=== PATIENT | female | born 1980 | race Caucasian/White ===

== ENCOUNTER 2017-01-10 13:20 | Emergency (ER) | payer SELFPAY ==
[2017-01-10 14:51] VITALS: BP 116/85
[2017-01-10] MEDS ORDERED: NORCO 5/325 PO ONE (15:43)
[2017-01-10] MEDS ORDERED: TORADOL IM ONE (15:43)
--- NOTE | 2017-01-10 15:43 | Emergency Department Report ---
ED Back Pain/Injury HPI - General Chief Complaint: Fall Stated Complaint: HIP INJURY FROM FALL Time Seen by Provider: 01/10/17 15:33 Source: patient Limitations: No Limitations - History of Present Illness Initial Comments: 36-year-old female past medical history none presents with complaint of lower back pain and mild pelvic pain status post fall 5 days ago at work. Patient states that she slipped while at work and did split-like motion when she fell one leg forward one leg backward and has experienced tightness and pain in her lower back and bilateral thighs since they have incident. Patient states she wants a primary care clinic had x-rays of her lower back and her pelvis which showed no fractures approximately 4 days ago. Patient has been taking naproxen with minimal relief of her pain. Patient denies any saddle paresthesias no loss of bladder or bowel control is fully ambulatory without assistance. Has not been taking anything for pain other than prescribed naproxen. States she has not has any issues with bowel incontience, denies suprapubic pain, incidentally states she has had increased urinary frequency. MD Complaint: fall Onset/Timin -: days(s) Similar Symptoms Previously: No Place: work Radiation: buttocks Severity: moderate Severity scale (0 -10): 6 Quality: sharp, aching Consistency: intermittent Improves With: immobilization, medication Worsens With: movement, walking Context: turning/twisting, fall Associated Symptoms: denies other symptoms - Related Data Previous Rx's Medication Instructions Recorded Last Taken Type HYDROcodone/APAP 5-325 [[place] 1 each PO Q6HR PRN #15 tablet 01/10/17 Unknown Rx 5/325] Nitrofurantoin [place]/M-Cryst 100 mg PO Q12HR #14 capsule 01/10/17 Unknown Rx [Macrobid CAP] Allergies Allergy/AdvReac Type Severity Reaction Status Date / Time No Known Allergies Allergy Unverified 01/10/17 14:52 ED Review of Systems ROS: Stated complaint: HIP INJURY FROM FALL Other details as noted in HPI Constitutional: denies: chills, fever Eyes: denies: eye pain, eye discharge, vision change ENT: denies: ear pain, throat pain Respiratory: denies: cough, shortness of breath, wheezing Cardiovascular: denies: chest pain, palpitations Endocrine: no symptoms reported Gastrointestinal: denies: abdominal pain, nausea, diarrhea Genitourinary: frequency. denies: urgency, dysuria, discharge Musculoskeletal: as per HPI, back pain. denies: joint swelling, arthralgia Skin: denies: rash, lesions Neurological: denies: headache, weakness, paresthesias Psychiatric: denies: anxiety, depression Hematological/Lymphatic: denies: easy bleeding, easy bruising ED Past Medical Hx - Past Medical History Previous Medical History?: No - Surgical History Past Surgical History?: No - Social History Smoking Status: Never Smoker Substance Use Type: None - Medications Home Medications: Home Medications Medication Instructions Recorded Confirmed Last Taken Type HYDROcodone/APAP 5-325 [[place] 1 each PO Q6HR PRN #15 tablet 01/10/17 Unknown Rx 5/325] Nitrofurantoin [place]/M-Cryst 100 mg PO Q12HR #14 capsule 01/10/17 Unknown Rx [Macrobid CAP] ED Physical Exam - General Limitations: No Limitations General appearance: alert, in no apparent distress - Head Head exam: Present: atraumatic, normocephalic - Eye Eye exam: Present: normal appearance, PERRL, EOMI - ENT ENT exam: Present: mucous membranes moist - Neck Neck exam: Present: normal inspection - Respiratory Respiratory exam: Present: normal lung sounds bilaterally. Absent: respiratory distress - Cardiovascular Cardiovascular Exam: Present: regular rate, normal rhythm. Absent: systolic murmur, diastolic murmur, rubs, gallop - GI/Abdominal GI/Abdominal exam: Present: soft, normal bowel sounds - Rectal Rectal exam: Present: normal rectal tone, other - Extremities Exam Extremities exam: Present: normal inspection, full ROM, tenderness - Back Exam Back exam: Present: normal inspection, paraspinal tenderness (mild paraspinal tendern), other (SLR negative left leg, + right leg 45 degress) - Neurological Exam Neurological exam: Present: alert, oriented X3, CN II-XII intact, normal gait - Psychiatric Psychiatric exam: Present: normal affect, normal mood - Skin Skin exam: Present: warm, dry, intact, normal color. Absent: rash ED Course Vital Signs 01/10/17 14:48 Temperature 97.9 F Pulse Rate 64 Respiratory 18 Rate Blood Pressure 116/85 O2 Sat by Pulse 100 Oximetry ED Medical Decision Making - Medical Decision Making A/P: Musculoskeletal back pain, sciatica 1-patient has no signs of cauda equina no bladder or bowel incontinence, no saddle paresthesias, patient is fully ambulatory without assistance 2-[place] when necessary short course, can continue to use naproxen 3-follow-up with primary care doctor and ortho Critical care attestation.: If time is entered above; I have spent that time in minutes in the direct care of this critically ill patient, excluding procedure time. ED Disposition Clinical Impression: Lower back pain Qualifiers: Chronicity: acute Back pain laterality: bilateral Sciatica presence: with sciatica Sciatica laterality: bilateral sciatica Qualified Code(s): M54.42 - Lumbago with sciatica, left side; M54.41 - Lumbago with sciatica, right side Sciatica Qualifiers: Laterality: bilateral Qualified Code(s): M54.31 - Sciatica, right side; M54.32 - Sciatica, left side Disposition: DISCHARGED TO HOME OR SELFCARE Is pt being admited?: No Does the pt Need Aspirin: No Condition: Stable Instructions: Sciatica (ED), Low Back Strain (ED), Urinary Tract Infection in Women (ED) Prescriptions: HYDROcodone/APAP 5-325 [[place] 5/325] 1 each PO Q6HR PRN #15 tablet PRN Reason: Pain Nitrofurantoin [place]/M-Cryst [Macrobid CAP] 100 mg PO Q12HR #14 capsule Referrals: CLOVER CRUZ MD [Staff Physician] - 3-5 Days ALICIA VALADEZ MD [Staff Physician] - 3-5 Days Forms: Accompanied Note, Work/School Release Form(ED) Time of Disposition: 17:14 Print Language: TUVALUAN
[2017-01-10 16:15] LABS: Bacteria,Urine 2+ /HPF (Negative); Bilirubin,Urine NEG (Negative); Blood,Urine NEG (Negative); Ketones,Urine NEG (Negative); Leukocyte Esterase,Urine MOD (Negative); Mucus,Urine FEW /HPF; Nitrite,Urine NEG (Negative); Protein,Urine <15 mg/dL mg/dL (Negative); Urobilinogen,Urine < 2.0 mg/dL (<2.0)
== END 2017-01-10 17:29 | disposition home or self-care (01) ==
LOC: ED 13:20
DX: M54.42 Lumbago with sciatica, left side (principal); M54.41 Lumbago with sciatica, right side; W01.0XXA Fall on same level from slipping, tripping and stumbling without subsequent striking against object, initial encounter; Y93.9 Activity, unspecified; Y99.9 Unspecified external cause status; Y92.69 Other specified industrial and construction area as the place of occurrence of the external cause
CPT/HCPCS: 81001; 81025; 96372; 99283; J1885

== ENCOUNTER 2021-02-07 10:17 | Emergency (ER) | payer OTHER ==
[2021-02-07 10:46] LABS: Basophils # (Auto) 0.1 K/mm3 (0.0-0.1); Basophils % (Auto) 0.7 % (0.0-1.8); Eosinophils # (Auto) 0.2 K/mm3 (0.0-0.4); Eosinophils % (Auto) 1.9 % (0.0-4.3); Hematocrit 38.9 % (30.3-42.9); Hemoglobin 13.1 gm/dl (10.1-14.3); Lymphocytes # (Auto) 2.2 K/mm3 (1.2-5.4); Lymphocytes % (Auto) 19.7 % (13.4-35.0); Mean Corpuscular HGB Conc 34 % (30-34); Mean Corpuscular Volume 86 fl (79-97); Monocytes # (Auto) 0.5 K/mm3 (0.0-0.8); Monocytes % (Auto) 4.4 % (0.0-7.3); Platelet Count 334 K/mm3 (140-440)
--- NOTE | 2021-02-07 11:22 | Ultrasound Report ---
ULTRASOUND OBSTETRIC INDICATION / CLINICAL INFORMATION: vaginal bleeding. Clinical Gestational Age (GA): 9.2 weeks.days TECHNIQUE: Transabdominal. COMPARISON: None available. FINDINGS: GESTATIONAL SAC: Well-defined oval shape and intrauterine in location. YOLK SAC: No significant abnormality. EMBRYO/FETUS: No significant abnormality. - [place]-Rump Length = 2.17 cm = 8.6 weeks.days - Heart Rate, beats per minute (if present) = 170 ADNEXA: Simple right ovarian cyst measures 2.5 cm. The left adnexa is unremarkable. FREE FLUID: None. ADDITIONAL FINDINGS: Small thin subchorionic hemorrhage is noted. IMPRESSION: 1. Single, living intrauterine with estimated sonographic age of 9.2 weeks.days. 2. Small subchorionic hemorrhage noted. Signer Name: Tam Becker MD Signed: 02/07/2021 11:17 AM Workstation Name: [id number]
[2021-02-07 11:23] VITALS: BP 111/69
--- NOTE | 2021-02-07 11:34 | Emergency Department Report ---
ED General Adult HPI - General Chief complaint: Vaginal Bleeding Stated complaint: 9 WKS BLEEDING Time Seen by Provider: 02/07/21 10:30 Source: patient Mode of arrival: Ambulatory Limitations: No Limitations - History of Present Illness Initial comments: 40-year-old female patient presents with complaints of vaginal bleeding and possible blood in urine x yesterday. Patient states she is 9 weeks and is currently following with an [facility]. She is A1. She denies any nausea/vomiting, diarrhea/constipation, flank pain, chest pain, shortness of breath, or swelling. Patient states her pain is mild and rates it as a 4/10 in severity. No vaginal discharge/dyspareunia or fever/chills/sweats per patient. - Related Data Previous Rx's Medication Instructions Recorded Last Taken Type HYDROcodone/APAP 5-325 [[place] 1 each PO Q6HR PRN #15 tablet 01/10/17 Unknown Rx 5/325] Nitrofurantoin [place]/M-Cryst 100 mg PO Q12HR #14 capsule 01/10/17 Unknown Rx [Macrobid CAP] Allergies Allergy/AdvReac Type Severity Reaction Status Date / Time No Known Allergies Allergy Unverified 01/10/17 14:52 ED Review of Systems ROS: Stated complaint: 9 WKS BLEEDING Other details as noted in HPI Constitutional: denies: chills, diaphoresis, fever, malaise Respiratory: denies: cough, shortness of breath Cardiovascular: denies: chest pain Genitourinary: hematuria, abnormal menses. denies: urgency, dysuria, frequency, discharge, dyspareunia Musculoskeletal: denies: back pain Skin: denies: rash, lesions Neurological: denies: headache Hematological/Lymphatic: denies: easy bleeding ED Past Medical Hx - Social History Smoking Status: Never Smoker Substance Use Type: None - Medications Home Medications: Home Medications Medication Instructions Recorded Confirmed Last Taken Type HYDROcodone/APAP 5-325 [[place] 1 each PO Q6HR PRN #15 tablet 01/10/17 Unknown Rx 5/325] Nitrofurantoin [place]/M-Cryst 100 mg PO Q12HR #14 capsule 01/10/17 Unknown Rx [Macrobid CAP] ED Physical Exam - General Limitations: No Limitations General appearance: alert, in no apparent distress - Head Head exam: Present: atraumatic, normocephalic - Eye Eye exam: Present: normal appearance. Absent: scleral icterus - Neck Neck exam: Present: normal inspection - Respiratory Respiratory exam: Present: normal lung sounds bilaterally. Absent: respiratory distress - Cardiovascular Cardiovascular Exam: Present: regular rate, normal rhythm - GI/Abdominal GI/Abdominal exam: Present: soft, normal bowel sounds. Absent: distended, tenderness, guarding, rebound, rigid - Extremities Exam Extremities exam: Present: full ROM - Back Exam Back exam: Present: full ROM. Absent: CVA tenderness (R), CVA tenderness (L) - Neurological Exam Neurological exam: Present: alert, oriented X3 - Psychiatric Psychiatric exam: Present: normal affect, normal mood - Skin Skin exam: Present: warm, dry, intact, normal color. Absent: rash ED Course Vital Signs 02/07/21 11:21 Temperature 98.5 F Pulse Rate 71 Respiratory 18 Rate Blood Pressure 111/69 O2 Sat by Pulse 100 Oximetry ED Medical Decision Making - Lab Data Result diagrams: 02/07/21 10:37 02/07/21 10:37 Lab Results 02/07/21 02/07/21 02/07/21 Range/Units 10:37 10:37 10:37 WBC 11.0 (4.5-11.0) K/mm3 RBC 4.50 (3.65-5.03) M/mm3 Hgb 13.1 (10.1-14.3) gm/dl Hct 38.9 (30.3-42.9) % MCV 86 (79-97) fl MCH 29 (28-32) pg MCHC 34 (30-34) % RDW 14.0 (13.2-15.2) % Plt Count 334 (140-440) K/mm3 Lymph % (Auto) 19.7 (13.4-35.0) % Johnson % (Auto) 4.4 (0.0-7.3) % Eos % (Auto) 1.9 (0.0-4.3) % Baso % (Auto) 0.7 (0.0-1.8) % Lymph # (Auto) 2.2 (1.2-5.4) K/mm3 Johnson # (Auto) 0.5 (0.0-0.8) K/mm3 Eos # (Auto) 0.2 (0.0-0.4) K/mm3 Baso # (Auto) 0.1 (0.0-0.1) K/mm3 Seg Neutrophils % 73.3 H (40.0-70.0) % Seg Neutrophils # 8.1 H (1.8-7.7) K/mm3 Sodium 136 L (137-145) mmol/L Potassium 3.9 (3.6-5.0) mmol/L Chloride 104.1 (98-107) mmol/L Carbon Dioxide 24 (22-30) mmol/L Anion Gap 12 mmol/L BUN 8 (7-17) mg/dL Creatinine 0.6 (0.6-1.2) mg/dL Estimated GFR > 60 ml/min BUN/Creatinine Ratio 13 % Glucose 103 H (65-100) mg/dL Calcium 8.3 L (8.4-10.2) mg/dL Total Bilirubin 0.20 (0.1-1.2) mg/dL AST 12 (5-40) units/L ALT 14 (7-56) units/L Alkaline Phosphatase 59 (35-129) units/L Total Protein 6.4 (6.3-8.2) g/dL Albumin 3.3 L (3.9-5) g/dL Albumin/Globulin Ratio 1.1 % HCG, Quant 19552 H (0-4) mIU/mL Urine Color (Yellow) Urine Turbidity (Clear) Urine pH (5.0-7.0) Ur Specific [place] (1.003-1.030) Urine Protein (Negative) mg/dL Urine Glucose (UA) (Negative) mg/dL Urine Ketones (Negative) mg/dL Urine Blood (Negative) Urine Nitrite (Negative) Urine Bilirubin (Negative) Urine Urobilinogen (<2.0) mg/dL Ur Leukocyte Esterase (Negative) Urine WBC (Auto) (0.0-6.0) /HPF Urine RBC (Auto) (0.0-6.0) /HPF U Epithel Cells (Auto) (0-13.0) /HPF Urine Bacteria (Auto) (Negative) /HPF Amorphous Crystals Urine Mucus /HPF Blood Type 02/07/21 02/07/21 Range/Units 10:37 Unknown WBC (4.5-11.0) K/mm3 RBC (3.65-5.03) M/mm3 Hgb (10.1-14.3) gm/dl Hct (30.3-42.9) % MCV (79-97) fl MCH (28-32) pg MCHC (30-34) % RDW (13.2-15.2) % Plt Count (140-440) K/mm3 Lymph % (Auto) (13.4-35.0) % Johnson % (Auto) (0.0-7.3) % Eos % (Auto) (0.0-4.3) % Baso % (Auto) (0.0-1.8) % Lymph # (Auto) (1.2-5.4) K/mm3 Johnson # (Auto) (0.0-0.8) K/mm3 Eos # (Auto) (0.0-0.4) K/mm3 Baso # (Auto) (0.0-0.1) K/mm3 Seg Neutrophils % (40.0-70.0) % Seg Neutrophils # (1.8-7.7) K/mm3 Sodium (137-145) mmol/L Potassium (3.6-5.0) mmol/L Chloride (98-107) mmol/L Carbon Dioxide (22-30) mmol/L Anion Gap mmol/L BUN (7-17) mg/dL Creatinine (0.6-1.2) mg/dL Estimated GFR ml/min BUN/Creatinine Ratio % Glucose (65-100) mg/dL Calcium (8.4-10.2) mg/dL Total Bilirubin (0.1-1.2) mg/dL AST (5-40) units/L ALT (7-56) units/L Alkaline Phosphatase (35-129) units/L Total Protein (6.3-8.2) g/dL Albumin (3.9-5) g/dL Albumin/Globulin Ratio % HCG, Quant (0-4) mIU/mL Urine Color Yellow (Yellow) Urine Turbidity Hazy (Clear) Urine pH 6.0 (5.0-7.0) Ur Specific [place] 1.020 (1.003-1.030) Urine Protein <15 mg/dl (Negative) mg/dL Urine Glucose (UA) Neg (Negative) mg/dL Urine Ketones Neg (Negative) mg/dL Urine Blood Sm (Negative) Urine Nitrite Neg (Negative) Urine Bilirubin Neg (Negative) Urine Urobilinogen < 2.0 (<2.0) mg/dL Ur Leukocyte Esterase Neg (Negative) Urine WBC (Auto) 4.0 (0.0-6.0) /HPF Urine RBC (Auto) 4.0 (0.0-6.0) /HPF U Epithel Cells (Auto) 6.0 (0-13.0) /HPF Urine Bacteria (Auto) 1+ (Negative) /HPF Amorphous Crystals Few Urine Mucus Few /HPF Blood Type A POSITIVE - Radiology Data Radiology results: report reviewed ULTRASOUND OBSTETRIC INDICATION / CLINICAL INFORMATION: vaginal bleeding. Clinical Gestational Age (GA): 9.2 weeks.days TECHNIQUE: Transabdominal. COMPARISON: None available. FINDINGS: GESTATIONAL SAC: Well-defined oval shape and intrauterine in location. YOLK SAC: No significant abnormality. EMBRYO/FETUS: No significant abnormality. - [place]-Rump Length = 2.17 cm = 8.6 weeks.days - Heart Rate, beats per minute (if present) = 170 ADNEXA: Simple right ovarian cyst measures 2.5 cm. The left adnexa is unremarkable. FREE FLUID: None. ADDITIONAL FINDINGS: Small thin subchorionic hemorrhage is noted. IMPRESSION: 1. Single, living intrauterine with estimated sonographic age of 9.2 weeks.days. 2. Small subchorionic hemorrhage noted. - Medical Decision Making 40-year-old female patient presents with complaints of vaginal bleeding and possible blood in urine x yesterday. Patient states she is 9 weeks and is currently following with an [facility]. She is A1. She denies any nausea/vomiting, diarrhea/constipation, flank pain, chest pain, shortness of breath, or swelling. Patient states her pain is mild and rates it as a 4/10 in severity. No vaginal discharge/dyspareunia or fever/chills/sweats per patient. Ultrasound shows 9.2-week IUP with small subchorionic hematoma. No significant abnormalities noted on UA, CBC, or CMP. Recommend pelvic rest and follow-up with [facility] in 3 days. Patient's vitals are normal, she is well-appearing, she is stable for discharge home. Discussed signs and symptoms that should prompt immediate return to the emergency department in detail with patient who verbalizes understanding. Critical care attestation.: If time is entered above; I have spent that time in minutes in the direct care of this critically ill patient, excluding procedure time. ED Disposition Clinical Impression: First trimester bleeding Subchorionic bleed Qualifiers: Fetus number: single or unspecified fetus Disposition: - TO HOME OR SELFCARE Is pt being admited?: No Condition: Stable Instructions: Vaginal Bleeding During , First Trimester, Activity Restriction During , Subchorionic Hematoma Additional Instructions: Please follow-up with your [facility] in 3 days
[2021-02-07 11:56] LABS: Alanine Aminotransferase 14 units/L (7-56); Albumin 3.3 g/dL (3.9-5); Blood Urea Nitrogen 8 mg/dL (7-17)
[2021-02-07 12:05] LABS: Calcium 8.3 mg/dL (8.4-10.2); Hemolysis Index 14
[2021-02-07 12:28] LABS: BUN/Creatinine Ratio 13
[2021-02-07 12:50] LABS: Amorphous Crystals,Urine Few; Bacteria,Urine 1+ /HPF (Negative); Bilirubin,Urine NEG (Negative); Blood,Urine SM (Negative); Color,Urine Yellow (Yellow); Mucus,Urine FEW /HPF; Protein,Urine <15 mg/dL mg/dL (Negative); Urobilinogen,Urine < 2.0 mg/dL (<2.0)
== END 2021-02-07 14:11 | disposition home or self-care (01) ==
LOC: ED 10:17
DX: O20.8 Other hemorrhage in early pregnancy (principal); Z3A.09 9 weeks gestation of pregnancy
CPT/HCPCS: 36415; 76801; 80053; 81001; 84702; 85025; 86900; 86901

== ENCOUNTER 2021-05-08 22:13 | Outpatient (CLI) | payer OTHER ==
[2021-05-08] MEDS ORDERED: LACTATED RINGERS 1,000 ML ONE (22:49)
[2021-05-08 23:23] LABS: Basophils # (Auto) 0.1 K/mm3 (0.0-0.1); Basophils % (Auto) 0.8 % (0.0-1.8); Eosinophils # (Auto) 0.3 K/mm3 (0.0-0.4); Eosinophils % (Auto) 2.7 % (0.0-4.3); Hematocrit 34.2 % (30.3-42.9); Hemoglobin 12.1 gm/dl (10.1-14.3); Lymphocytes # (Auto) 2.7 K/mm3 (1.2-5.4); Lymphocytes % (Auto) 26.6 % (13.4-35.0); Mean Corpuscular HGB Conc 35 % (30-34); Mean Corpuscular Volume 85 fl (79-97); Monocytes # (Auto) 0.8 K/mm3 (0.0-0.8); Monocytes % (Auto) 8.4 % (0.0-7.3); Platelet Count 346 K/mm3 (140-440); Red Blood Count 4.04 M/mm3 (3.65-5.03); Red Cell Distribution Width 14.7 % (13.2-15.2)
[2021-05-08] MEDS ORDERED: MORPHINE 4 MG/1 ML INJ IV ONE ×2 (23:51→23:58)
--- NOTE | 2021-05-08 23:51 | Ultrasound Report ---
Limited OB ultrasound INDICATION: Bleeding FINDINGS: Single live intrauterine in cephalic position. ENOC measures 14.2 cm. Grade 0 plac enta posterior location. heart rate 1 52 bpm. Cervix length 3.6 cm. IMPRESSION: Live intrauterine . No acute findings. Signer Name: Kalpesh Mabry MD Signed: 05/08/2021 11:46 PM Workstation Name: [id number]
[2021-05-08] MEDS ORDERED: MORPHINE 4 MG/1 ML INJ ONE (23:56)
[2021-05-09] MEDS ORDERED: LACTATED RINGERS 1,000 ML ONE (00:08)
[2021-05-09 02:47] VITALS: BP 103/60
== END 2021-05-09 06:03 | disposition home or self-care (01) ==
LOC: TRG 22:13 → APU 22:17 → TRG 05-09 06:03
DX: O46.92 Antepartum hemorrhage, unspecified, second trimester (principal); O26.892 Other specified pregnancy related conditions, second trimester; M54.9 Dorsalgia, unspecified; R10.2 Pelvic and perineal pain; O47.02 False labor before 37 completed weeks of gestation, second trimester; O09.522 Supervision of elderly multigravida, second trimester; Z3A.22 22 weeks gestation of pregnancy
CPT/HCPCS: 36415; 59025; 76815; 85025; 96374; J2270; J7120; 96360

== ENCOUNTER 2021-07-28 10:31 | Outpatient (CLI) | payer OTHER ==
[2021-07-28] MEDS ORDERED: LACTATED RINGERS 1,000 ML IV ONE (11:23)
[2021-07-28 11:31] VITALS: BP 124/85
[2021-07-28 12:14] LABS: Bacteria,Urine 2+ /HPF (Negative); Bilirubin,Urine NEG (Negative); Blood,Urine LG (Negative); Color,Urine Yellow (Yellow); Protein,Urine <15 mg/dL mg/dL (Negative); Urobilinogen,Urine < 2.0 mg/dL (<2.0)
[2021-07-28] MEDS ORDERED: LACTATED RINGERS 1,000 ML ONE (14:43)
[2021-07-28] MEDS ORDERED: ceFAZolin 1 GM VIAL ONE (16:59)
[2021-07-28] MEDS ORDERED: LACTATED RINGERS 500 ML IV ONE (17:00)
[2021-07-28] MEDS: TERBUTALINE 1 MG/1 ML INJ SUB-Q SCH ×2 (17:09→17:54)
== END 2021-07-28 18:37 | disposition home or self-care (01) ==
LOC: TRG 10:31 → APU 10:32 → TRG 18:37
PROVIDERS: ATTEND Obstetrics & Gynecology
DX: O62.9 Abnormality of forces of labor, unspecified (principal); O46.93 Antepartum hemorrhage, unspecified, third trimester; O09.523 Supervision of elderly multigravida, third trimester; Z3A.33 33 weeks gestation of pregnancy
CPT/HCPCS: 59025; 81001; 96365; 96372; J0690; J3105; J7120; 96360; 96361

== ENCOUNTER 2021-08-02 05:40 | Outpatient (CLI) | payer OTHER ==
[2021-08-02] MEDS ORDERED: LACTATED RINGERS 1,000 ML IV ONE (06:18)
[2021-08-02 08:05] LABS: Bacteria,Urine 1+ /HPF (Negative); Bilirubin,Urine NEG (Negative); Blood,Urine NEG (Negative); Color,Urine Yellow (Yellow); Mucus,Urine FEW /HPF; Protein,Urine <15 mg/dL mg/dL (Negative); Urobilinogen,Urine < 2.0 mg/dL (<2.0)
[2021-08-02 08:17] VITALS: BP 125/80
== END 2021-08-02 08:30 | disposition home or self-care (01) ==
LOC: TRG 05:40 → APU 05:42 → TRG 08:30
PROVIDERS: ATTEND Obstetrics & Gynecology
DX: O62.9 Abnormality of forces of labor, unspecified (principal); O09.523 Supervision of elderly multigravida, third trimester; Z3A.34 34 weeks gestation of pregnancy
CPT/HCPCS: 59025; 81001; 96360; J7120

== ENCOUNTER 2021-08-08 07:10 | Inpatient (IN) | payer OTHER ==
[2021-08-08] MEDS ORDERED: LACTATED RINGERS 500 ML IV ONE (08:21)
[2021-08-08] MEDS ORDERED: MORPHINE 2 MG/1 ML INJ IV NR (09:29)
[2021-08-08 09:47] LABS: Hematocrit 31.9 % (30.3-42.9); Hemoglobin 10.9 gm/dl (10.1-14.3); Mean Corpuscular HGB Conc 34 % (30-34); Mean Corpuscular Volume 84 fl (79-97); Platelet Count 254 K/mm3 (140-440); Red Blood Count 3.78 M/mm3 (3.65-5.03); Red Cell Distribution Width 15.3 % (13.2-15.2)
[2021-08-08 10:09] LABS: Bacteria,Urine 4+ /HPF (Negative); Bilirubin,Urine NEG (Negative); Blood,Urine NEG (Negative); Color,Urine Yellow (Yellow); Mucus,Urine FEW /HPF; Urobilinogen,Urine < 2.0 mg/dL (<2.0)
[2021-08-08 10:11] LABS: Alanine Aminotransferase 13 units/L (7-56); Uric Acid 3.7 mg/dL (3.5-7.6)
[2021-08-08] MEDS ORDERED: TERBUTALINE 1 MG/1 ML INJ SUB-Q PRN (12:05)
[2021-08-08] MEDS ORDERED: ONDANSETRON 4 MG/2 ML INJ IV PRN (12:05)
[2021-08-08] MEDS ORDERED: AMPICILLIN/NS 2 GM/100 ML 2 GM/100 ML BAG IV ONE (12:05)
[2021-08-08] MEDS ORDERED: ACETAMINOPHEN 325 MG TAB PO PRN (12:05)
[2021-08-08] MEDS ORDERED: MAGNESIUM SULFATE 4 GM/100 ML BAG IV ONE (12:13)
[2021-08-08] MEDS ORDERED: CARBOPROST TROMETHAMINE 250 MCG/1 ML INJ IM PRN (12:24)
[2021-08-08] MEDS ORDERED: LIDOCAINE (2%) 20 MG/1 ML VIAL 20 ML MDV INFILTRATI ONE (12:24)
[2021-08-08] MEDS ORDERED: METHYLERGONOVINE MALEATE 0.2 MG/ML VIAL IM PRN (12:24)
[2021-08-08] MEDS ORDERED: miSOPROStol 200 MCG TAB PR PRN (12:24)
[2021-08-08] MEDS ORDERED: LOPERAMIDE 2 MG CAP PO PRN (12:24)
[2021-08-08] MEDS ORDERED: OXYTOCIN 10 UNIT/1 ML INJ IM PRN (12:24)
--- NOTE | 2021-08-08 12:29 | History and Physical Report ---
History of Present Illness Date of examination: 08/08/21 Date of admission: 08/08/21 07:11 Chief complaint: Contractions, headache. History of present illness: 41 year old presents to L&D with contractions, headache, and elevated blood pressure. Patient states she received care at [facility] but no records are available. records have been requested. In triage patient's blood pressure was noted to be elevated in severe range and Dr. Browning gave orders for admission, magnesium sulfate, Celestone, and augmentation of labor due to preeclampsia with severe features. Patient reports history of 3 previous full term vaginal births and 1 second trimester miscarriage at 18 weeks gestation (states fetus had defects). Patient reports her was significant for AMA and vaginal bleeding in first trimester and again at 20 weeks (resolved both times). labs were drawn upon admission. Patient reports "allergy" to morphine (states she gets nausea). 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 denies: smoking, alcohol abuse, prescription drug abuse, IV drug use - Obstetrical History Expected Date of Delivery: 09/10/21 Actual Gestation: 35 Week(s) 2 Day(s) : 5 Para: 3 Hx # Term Pregnancies: 3 Number of Pregnancies: 0 Spontaneous Abortions: 1 Induced : 0 Number of Living Children: 3 Medications and Allergies Allergies Allergy/AdvReac Type Severity Reaction Status Date / Time morphine AdvReac Severe Dizziness Verified 08/08/21 08:19 Home Medications Medication Instructions Recorded Confirmed Last Taken Type No.137/Iron/Folic Acd 1 tab PO DAILY 08/08/21 08/08/21 08/07/21 History [[facility] Vitamins Tablet] Active Meds: Active Medications Acetaminophen (Acetaminophen 325 Mg Tab) 650 mg PO Q4H PRN PRN Reason: Pain, Mild (1-3) Betamethasone Acet/Betameth SodPhos (Betamet Acet/Betamet Na Ph 6 Mg/Ml Inj 5 Ml Mdv) 12 mg IM Q24HR DARLENE Stop: 08/09/21 10:01 Carboprost Tromethamine (Carboprost Tromethamine 250 Mcg/1 Ml Inj) 250 mcg IM ONCE PRN PRN Reason: Uterine Bleeding Lactated Ringer's (Lactated Ringers) 1,000 mls @ 75 mls/hr IV DIRECT DARLENE Ampicillin Sodium (Ampicillin/Ns 2 Gm/100 Ml) 2 gm in 100 mls @ 100 mls/hr IV ONCE ONE; Protocol Stop: 08/08/21 13:04 Ampicillin Sodium (Ampicillin/Ns 1 Gm/50 Ml) 1 gm in 50 mls @ 100 mls/hr IV Q4H DARLENE; Protocol Magnesium Sulfate (Magnesium Sulfate 4gm/100ml) 4 gm in 100 mls @ 300 mls/hr IV ONCE ONE Stop: 08/08/21 12:32 Magnesium Sulfate (Magnesium Sulfate 40gm/1000ml) 40 gm in 1,000 mls @ 50 mls/hr IV DIRECT DARLENE Oxytocin/Sodium Chloride (Pitocin/Ns 30 Unit/500ml) 30 units in 500 mls @ 2 mls/hr IV TITR DARLENE; Protocol Oxytocin/Sodium Chloride (Pitocin/Ns 30 Unit/500ml) 30 units in 500 mls @ 40 mls/hr IV TITR DARLENE; Protocol Lidocaine (Lidocaine (2%) 20 Mg/1 Ml Vial 20 Ml Mdv) 20 ml INFILTRATI ONCE ONE Stop: 08/08/21 12:25 Loperamide HCl (Loperamide 2 Mg Cap) 2 mg PO ONCE PRN PRN Reason: give with Hemabate Misoprostol (Misoprostol 200 Mcg Tab) [address] ONCE PRN PRN Reason: Uterine Bleeding Ondansetron HCl (Ondansetron 4 Mg/2 Ml Inj) 4 mg IV Q8H PRN PRN Reason: Nausea And Vomiting Oxytocin (Oxytocin 10 Unit/1 Ml Inj) 10 unit IM ONCE PRN PRN Reason: Uterine Bleeding Terbutaline Sulfate (Terbutaline 1 Mg/1 Ml Inj) 0.25 mg SUB-Q ONCE PRN PRN Reason: Hyperstimulation/Hypertonicity Review of Systems All systems: negative (contractions, headache) - Vital Signs Vital signs: Vital Signs Pulse BP Pulse Ox 67 139/85 98 08/08/21 08:14 08/08/21 08:14 08/08/21 08:14 Temp Pulse Resp BP Pulse Ox 98.2 F 73 14 138/88 97 08/08/21 08:20 08/08/21 12:24 08/08/21 08:20 08/08/21 11:24 08/08/21 12:24 - Physical Exam Abdomen: Positive: normal appearance, soft. Negative: distention, tenderness, guarding, rigidity Genitourinary (Female): Positive: normal external genitalia, normal perenium. Negative: perineal/vulvar lesions (no lesions noted on careful exam under bright light) Vagina: Positive: normal moisture Uterus: Positive: enlarged. Negative: tender Anus/Rectum: Positive: normal perianal skin Extremities: Negative: tenderness - Obstetrical FHR: category 1 Uterine Contraction Monitor Mode: External Cervical Dilatation: 0.5 Cervical Effacement Percentage: 50 station: -4 Uterine Contraction Pattern: Irregular Uterine Contraction Intensity: Mild Results Result Diagrams: 08/08/21 09:35 08/08/21 09:35 Abnormal lab results 08/08/21 08/08/21 08/08/21 Range/Units 09:35 09:35 09:35 RDW 15.3 H (13.2-15.2) % Creatinine 0.5 L (0.6-1.2) mg/dL U Epithel Cells (Auto) 51.0 H (0-13.0) /HPF All other labs normal. Assessment and Plan A: at 35 weeks, 2 days gestation. Preeclampsia with severe features. AMA. GBS unknown. No records available. P: Admit. Continuous EFM. Celestone for FLM. Magnesium Sulfate for seizure prevention IV hydralazine as needed for severe range BPs. GBS prophylaxis. US for presentation and location of placenta. Obtain records ( labs were drawn upon admission since no records available at this time). Start Pitocin augmentation of labor once US confirms cephalic presentation and placental location.
[2021-08-08] MEDS ORDERED: hydrALAZINE 20 MG/1 ML INJ IV PRN (12:50)
[2021-08-08] MEDS ORDERED: MAGNESIUM SULFATE 40GM/1000ML 40 GM/1,000 ML BAG IV SCH (13:00)
[2021-08-08] MEDS ORDERED: OXYTOCIN DRIP 30 UNITS/500 ML BAG IV SCH ×2 (13:00)
[2021-08-08] MEDS: LACTATED RINGERS 1,000 ML IV SCH (13:44)
--- NOTE | 2021-08-08 13:45 | Ultrasound Report ---
ULTRASOUND OBSTETRIC LIMITED INDICATION / CLINICAL INFORMATION: presentation, location of placenta. Clinical Gestational Age (GA) in weeks, days: TECHNIQUE: Transabdominal. COMPARISON: 05/08/2021 FINDINGS: HEART RATE (beats per minute): 143 AMNIOTIC FLUID INDEX (cm) = not measured. (normal = 7-24 cm) PRESENTATION: Cephalic. ADDITIONAL FINDINGS: Placenta is located posteriorly without previa. Placental grade is 1. IMPRESSION: 1. Single viable IUP in a cephalic presentation with posteriorly located placenta. No previa. Signer Name: Ashly Austin MD Signed: 08/08/2021 1:41 PM Workstation Name: [id number]
[2021-08-08] MEDS ORDERED: BETAMET ACET/BETAMET NA PH 6 MG/ML INJ 5 ML MDV IM SCH (14:00)
[2021-08-08] MEDS: NalbUPHINE 10 MG/1 ML INJ IV PRN ×2 (15:45→19:36)
[2021-08-08] MEDS ORDERED: MORPHINE 2 MG/1 ML INJ IM ONE (16:00)
[2021-08-08 18:11] LABS: Hepatitis C Virus Antibody Non-Reactive (NonReactive)
[2021-08-08] MEDS: AMPICILLIN/NS 1 GM/50 ML 1 GM/50 ML BAG IV SCH (19:37)
[2021-08-09] MEDS ORDERED: ACETAMINOPHEN 500 MG TAB PO PRN (00:54)
[2021-08-09] MEDS: AMPICILLIN/NS 1 GM/50 ML 1 GM/50 ML BAG IV SCH (01:06)
[2021-08-09] MEDS ORDERED: diphenhydrAMINE 25 MG CAP PO ONE (01:30)
--- NOTE | 2021-08-09 03:06 | Event Note ---
Date: 08/09/21 Patient complains of headache which is not relieved by Tylenol. Patient states headache is severe. BPs are well controlled. Called Dr. Browning re: patient's persistent headache and Dr. Browning orders head CT. Patient refused head CT. Blood glucose is 134.
[2021-08-09] MEDS ORDERED: BUTALB/ACETAMINOPHEN/CAFFEINE TAB PO PRN (03:42)
[2021-08-09] MEDS ORDERED: LORazepam 2 MG/ML VIAL IV ONE (08:00)
[2021-08-09] MEDS ORDERED: BICITRA ORAL LIQD 30ML PO ONE (08:56)
[2021-08-09] MEDS ORDERED: METOCLOPRAMIDE 10 MG/2 ML INJ IV ONE (08:56)
[2021-08-09] MEDS ORDERED: FAMOTIDINE 20 MG/2 ML INJ IV ONE (08:56)
[2021-08-09] MEDS ORDERED: SODIUM CHLORIDE 0.9% 500 ML 500 ML IV ONE (08:59)
[2021-08-09] MEDS ORDERED: propofoL 200 MG/20 ML VIAL IV ONE (08:59)
[2021-08-09] MEDS ORDERED: SUCCINYLCHOLINE CHLORIDE 200 MG/10 ML INJ MDV ONE (08:59)
[2021-08-09] MEDS ORDERED: OXYTOCIN DRIP 30 UNITS/500 ML BAG IV SCH (09:00)
[2021-08-09] MEDS ORDERED: LIDOCAINE MPF (2%) 20 MG/1 ML VIAL 5 ML ONE (09:00)
[2021-08-09] MEDS ORDERED: ceFAZolin/Water 2 GM/20 ML 2 GM/20 ML SYRINGE IV NR (09:00)
[2021-08-09] MEDS ORDERED: LACTATED RINGERS 1,000 ML IV SCH (09:00)
[2021-08-09] MEDS ORDERED: KETOROLAC 30 MG/1 ML INJ ONE (09:00)
[2021-08-09] MEDS ORDERED: ceFAZolin 1 GM VIAL ONE ×2 (09:04→09:10)
[2021-08-09] MEDS ORDERED: KETAMINE/STERILE WATER 50 MG/ML SYRINGE ONE (09:17)
[2021-08-09] MEDS ORDERED: fentaNYL 250 MCG/5 ML INJ ONE (09:38)
[2021-08-09] MEDS ORDERED: dexAMETHasone 20 MG/5 ML VIAL ONE (09:45)
[2021-08-09] MEDS ORDERED: ONDANSETRON 4 MG/2 ML INJ ONE ×2 (09:46)
--- NOTE | 2021-08-09 09:59 | XRay Report ---
ABDOMEN 1 VIEW INDICATION / CLINICAL INFORMATION: Stat , unable to complete initial count. COMPARISON: None available. FINDINGS: TUBES / LINES: None. BOWEL GAS PATTERN: Mild gaseous prominence of bowel throughout the abdomen. FREE AIR / EXTRALUMINAL GAS: None seen. ADDITIONAL FINDINGS: No radiopaque foreign body identified. IMPRESSION: 1. No radiopaque foreign body identified. Signer Name: Byron Singh MD Signed: 08/09/2021 9:55 AM Workstation Name: [id number]
--- NOTE | 2021-08-09 10:19 | Procedure Note ---
OB Delivery Note - Delivery Date of Delivery: 08/09/21 Surgeon: JAIR PEDRO - Section Preop diagnosis: desires sterilization, other (maternal hemorrhage with AROM, suspect Vasa Previa) Postop diagnosis: same section procedure: primary low transverse, bilateral tubal ligation Disposition: PACU Complications: hematoma (right mesosalpix-contained and not extending) Narrative: Preop diagnosis: IUP at 35+3/7 weeks, preeclampsia, maternal hemorrhage with AROM suspected Vasa Previa, Multuparity desires permanent sterilization Postop diagnosis: Same Procedure: Primary low transverse section via Pfannenstiel incision with Mofied Amaris Bilateral Tubal ligation Surgeon: Dr. Jair Pedro Anesthesia spinal Complications none EBL 1663ml IV fluids 1400mL Urine output 200mL, clear Drains Elam to gravity Findings: Viable female with weight and 7/8, normal uterus tubes and ovaries bilaterally Procedure: AROM bloody fluid immediately followed by brisk maternal hemorrhage. Patient taken to the OR immediately for STAT emergent delivery. She received excellent GETA. The abdomen was prepped and draped in a sterile fashion, and a timeout was verified. A Pfannenstiel skin incision was made with a scalpel taken down to the underlying structures and the fascia was incised in the midline. The incision was extended laterally with curved Tyler scissors, the superior and inferior aspects of the fascial incisions were grasped with Ralph clamps and the rectus muscles dissected sharply. The abdomen was entered bluntly in the midline carried down inferiorly with good visualization of the bladder. The uterine incision was then made sharply with a scalpel. The inferior and superior aspect of the uterine incisions were extended bluntly, the baby's head was delivered atraumatically. The remainder of the delivery was uncomplicated, no nuchal cord. Spontaneous cry at delivery. Cord gasses obtained. The cord was clamped and cut and baby handed to waiting NICU team. An intact placenta with three-vessel cord delivered manually. The uterus was then cleared of all clots and debris and the uterus exteriorized. The uterine incision was closed in 2 layers of 0 vicryl with excellent hemostasis. Attention then turned to the fallopian tubes which were suture ligated in the usual fashion with excellent hemostasis. The abdomen was then irrigated with warm normal saline and the uterus placed back into the abdomen atraumatically. A second look at the uterine incision assured hemostasis. The patient was noted to have a right hematoma concealed in the right mesosalpinx with no active bleeding or extension into the broad ligament noted. The peritoneum was closed with 3-0 Vicryl, the rectus muscles approximated with 3-0 Vicryl, and the fascia closed with 0 Vicryl in the usual fashion. The subcuticular structures were closed with interrupted sutures of 3-0 Vicryl and the skin closed with 4-0 Monocryl. Radiology present for flat plate to confirm that all instruments were accounted for-no retained instruments or sponges noted on film at bedside. A pressure dressing was applied. There were no complications. Mom extubated and stable to PACU, baby to NICU to transition. Family notified on maternal/baby condition at the completion of the procedure.. EBL 1663 mL Rico Pedro MD
[2021-08-09] MEDS ORDERED: NALOXONE 0.4 MG/1 ML INJ IV PRN (10:30)
[2021-08-09] MEDS ORDERED: ONDANSETRON 4 MG/2 ML INJ IV PRN (10:30)
[2021-08-09] MEDS ORDERED: MORPHINE 2 MG/1 ML INJ IV PRN (10:30)
[2021-08-09] MEDS ORDERED: ACETAMINOPHEN 325 MG TAB PO PRN (10:30)
[2021-08-09] MEDS ORDERED: MORPHINE 4 MG/1 ML INJ IV PRN (10:30)
[2021-08-09] MEDS ORDERED: oxyCODONE /ACETAMINOPHEN 5-325MG TAB PO PRN (10:30)
[2021-08-09] MEDS: LACTATED RINGERS 1,000 ML IV SCH ×2 (10:30→20:15)
[2021-08-09] MEDS ORDERED: LANOLIN/ZINC/DIMETHICONE (LANSINOH) 7 GM TP PRN (10:30)
[2021-08-09] MEDS ORDERED: WITCH HAZEL/ GLYCERIN PAD TP PRN (10:30)
--- NOTE | 2021-08-09 10:35 | Anesthesia Day of Surgery ---
Anesthesia Day of Surgery - Day of Surgery Patient Examined: Yes Patient H&P Reviewed: Yes Patient is NPO: Yes Beta Blockers: Yes Cardiac Clearance: No Pulmonary Clearance: No Yahir's Test: Negative
--- NOTE | 2021-08-09 10:36 | Anesthesia Consultation ---
Anesthesia Consult and Med Hx Date of service: 08/09/21 - Airway Anesthetic Teeth Evaluation: Poor ROM Head & Neck: Adequate Mental/Hyoid Distance: Adequate Mallampati Class: Class II Intubation Access Assessment: Good - Pulmonary Exam CTA: Yes - Cardiac Exam Cardiac Exam: RRR - Pre-Operative Health Status ASA Pre-Surgery Classification: ASA3, Emergency Proposed Anesthetic Plan: General - Pulmonary Hx Smoking: No Hx Asthma: No Hx Respiratory Symptoms: No SOB: No COPD: No Home Oxygen Therapy: No Hx Pneumonia: No Hx Sleep Apnea: No - Cardiovascular System Hx Hypertension: Yes (preelampsia) Hx Coronary Artery Disease: No Hx Heart Attack/AMI: No Hx Angina: No Hx Percutaneous Transluminal Coronary Angioplasty (PTCA): No Hx Cardia Arrhythmia: No Hx Pacemaker: No Hx Internal Defibrillator: No Hx Valvular Heart Disease: No Hx Heart Murmur: No Hx Peripheral Vascular Disease: No - Central Nervous System Hx Neuromuscular Disorder: No Hx Seizures: No CVA: No Hx Back Pain: No Hx Psychiatric Problems: No - Gastrointestinal Hx Ulcer: No Hx Gastroesophageal Reflux Disease: Yes - Endocrine Hx Renal Disease: No Hx End Stage Renal Disease: No Hx Cirrhosis: No Hx Liver Disease: No Hx Insulin Dependent Diabetes: No Hx Non-Insulin Dependent Diabetes: No Hx Thyroid Disease: No Hx Hypothyroidism: No Hx Hyperthyroidism: No - Hematic Hx Anemia: No Hx Sickle Cell Disease: No - Other Systems Hx Alcohol Use: No Hx Substance Use: No Hx Cancer: No Hx Obesity: Yes
[2021-08-09] MEDS: KETOROLAC 30 MG/1 ML INJ IV PRN (13:47)
[2021-08-09] MEDS ORDERED: guaiFENesin/CODEINE 100-10MG ORAL LIQD 5 ML PO PRN (18:25)
[2021-08-10 00:09] LABS: Hematocrit 27.9 % (30.3-42.9); Hemoglobin 9.4 gm/dl (10.1-14.3)
[2021-08-10] MEDS: KETOROLAC 30 MG/1 ML INJ IV PRN (02:48)
--- NOTE | 2021-08-10 06:53 | Progress Note ---
Subjective - Subjective Date of service: 08/10/21 Interval history: COVID positive: headache improving BP's WNL,not on magnesium second to increased somnolence and absent DTR's. Continue labetalol PO transfer to Mother/Baby advance diet encourage ambulation Incision c/d/i Rico Browinng MD Objective - Vital Signs Latest vital signs: Vital Signs Temp Pulse Resp BP BP Pulse Ox Pulse Ox 08/10/21 06:47 73 97 08/10/21 06:42 67 99 08/10/21 06:37 68 98 08/10/21 06:32 73 98 08/10/21 06:29 72 129/80 08/10/21 06:27 78 99 08/10/21 06:22 73 98 08/10/21 06:17 72 98 08/10/21 06:12 69 98 08/10/21 06:07 70 98 08/10/21 06:02 70 98 08/10/21 05:59 84 145/78 08/10/21 05:57 75 98 08/10/21 05:52 74 98 08/10/21 05:47 72 98 08/10/21 05:42 74 98 08/10/21 05:37 71 99 08/10/21 05:32 69 98 08/10/21 05:29 78 136/82 08/10/21 05:27 72 98 08/10/21 05:22 77 99 08/10/21 05:17 75 98 08/10/21 05:12 76 99 08/10/21 05:07 74 99 08/10/21 05:02 72 98 08/10/21 04:59 78 123/81 08/10/21 04:57 77 98 08/10/21 04:52 76 98 08/10/21 04:47 77 99 08/10/21 04:42 79 98 08/10/21 04:37 78 98 08/10/21 04:32 73 97 08/10/21 04:29 75 122/75 08/10/21 04:27 84 97 08/10/21 04:22 74 97 08/10/21 04:17 77 97 08/10/21 04:12 77 97 08/10/21 04:07 80 97 08/10/21 04:02 73 97 08/10/21 03:59 76 127/72 08/10/21 03:57 75 97 08/10/21 03:52 77 97 08/10/21 03:47 76 97 08/10/21 03:42 79 97 08/10/21 03:37 75 98 08/10/21 03:32 75 98 08/10/21 03:29 75 131/85 08/10/21 03:27 72 98 08/10/21 03:22 73 97 08/10/21 03:17 75 98 08/10/21 03:12 75 97 08/10/21 03:07 85 98 08/10/21 03:02 77 98 08/10/21 02:59 81 149/89 08/10/21 02:57 92 H 97 08/10/21 02:52 78 97 08/10/21 02:48 18 08/10/21 02:47 80 98 08/10/21 02:42 74 97 08/10/21 02:37 74 97 08/10/21 02:32 77 98 08/10/21 02:29 78 137/78 08/10/21 02:27 74 98 08/10/21 02:22 76 98 08/10/21 02:17 78 98 08/10/21 02:12 74 98 08/10/21 02:07 75 98 08/10/21 02:02 78 98 08/10/21 01:59 74 139/86 08/10/21 01:57 78 98 08/10/21 01:52 77 98 08/10/21 01:47 76 98 08/10/21 01:42 78 98 08/10/21 01:39 97.9 F 08/10/21 01:37 87 97 08/10/21 01:32 78 98 08/10/21 01:29 90 140/107 08/10/21 01:27 79 98 08/10/21 01:22 77 97 08/10/21 01:17 83 97 08/10/21 01:12 78 98 08/10/21 01:07 75 98 08/10/21 01:02 81 97 08/10/21 00:59 79 139/86 08/10/21 00:57 76 98 08/10/21 00:52 90 98 08/10/21 00:47 94 H 98 08/10/21 00:42 85 98 08/10/21 00:37 86 99 08/10/21 00:32 96 H 98 08/10/21 00:29 83 142/88 08/10/21 00:27 96 H 98 08/10/21 00:22 100 H 98 08/10/21 00:17 81 98 08/10/21 00:12 80 98 08/10/21 00:07 80 98 08/10/21 00:02 82 98 08/09/21 23:59 81 146/87 08/09/21 23:57 83 97 08/09/21 23:52 84 98 08/09/21 23:47 84 97 08/09/21 23:42 79 97 08/09/21 23:37 81 96 08/09/21 23:32 89 98 08/09/21 23:29 85 137/86 08/09/21 23:27 81 99 08/09/21 23:22 89 98 08/09/21 23:17 81 98 08/09/21 23:12 83 96 08/09/21 23:07 94 H 99 08/09/21 23:02 95 H 149/90 99 08/09/21 22:59 87 152/92 08/09/21 22:57 98 H 99 08/09/21 22:52 86 135/84 98 08/09/21 22:47 85 99 08/09/21 22:42 83 98 08/09/21 22:37 80 98 08/09/21 22:32 91 H 98 08/09/21 22:29 80 135/87 08/09/21 22:27 87 98 08/09/21 22:22 89 98 08/09/21 22:17 82 98 08/09/21 22:12 90 99 08/09/21 22:07 82 99 08/09/21 22:02 80 98 08/09/21 21:59 84 142/87 08/09/21 21:57 85 98 08/09/21 21:52 87 98 08/09/21 21:47 86 98 08/09/21 21:42 85 98 08/09/21 21:37 84 97 08/09/21 21:32 86 98 08/09/21 21:29 79 144/93 08/09/21 21:27 83 98 08/09/21 21:22 82 98 08/09/21 21:20 80 158/84 08/09/21 21:17 82 97 08/09/21 21:12 88 98 08/09/21 21:07 83 97 08/09/21 21:02 76 100 08/09/21 20:59 75 149/87 08/09/21 20:57 78 100 08/09/21 20:52 78 100 08/09/21 20:47 72 100 08/09/21 20:42 87 100 08/09/21 20:37 75 100 08/09/21 20:32 79 100 08/09/21 20:29 74 146/82 08/09/21 20:27 78 100 08/09/21 20:22 81 100 08/09/21 20:17 84 100 08/09/21 20:12 77 100 08/09/21 20:10 83 0 L 08/09/21 20:07 81 100 08/09/21 20:02 77 100 08/09/21 19:59 76 137/80 08/09/21 19:57 80 100 08/09/21 19:52 65 L 08/09/21 19:49 86 88 08/09/21 19:47 83 96 08/09/21 19:42 80 86 08/09/21 19:40 83 90 08/09/21 19:37 82 94 08/09/21 19:32 82 95 08/09/21 19:29 83 136/83 08/09/21 19:27 82 95 08/09/21 19:22 85 96 08/09/21 19:21 97.7 F 18 95 08/09/21 19:17 85 138/84 96 08/09/21 19:12 88 95 08/09/21 19:07 89 95 08/09/21 19:02 85 96 08/09/21 18:59 82 142/80 08/09/21 18:57 91 H 95 08/09/21 18:52 82 96 08/09/21 18:47 85 70 L 08/09/21 18:46 87 89 08/09/21 18:41 85 96 08/09/21 18:39 92 H 87 08/09/21 18:36 86 95 08/09/21 18:34 98.8 F 85 16 143/86 143/86 96 08/09/21 18:31 84 95 08/09/21 18:29 88 143/86 08/09/21 18:26 88 95 08/09/21 18:21 94 H 95 08/09/21 18:16 86 93 08/09/21 18:11 83 95 08/09/21 18:06 83 95 08/09/21 18:01 85 94 08/09/21 17:59 82 131/77 08/09/21 17:56 85 95 08/09/21 17:51 89 93 08/09/21 17:46 87 94 08/09/21 17:41 93 H 95 08/09/21 17:37 91 H 85 08/09/21 17:36 89 95 08/09/21 17:31 86 94 08/09/21 17:29 90 137/81 08/09/21 17:26 95 H 94 08/09/21 17:21 92 H 97 08/09/21 17:16 81 95 08/09/21 17:11 91 H 94 08/09/21 17:06 83 95 08/09/21 17:01 90 96 08/09/21 16:59 92 H 131/78 08/09/21 16:56 97 H 96 08/09/21 16:51 92 H 95 08/09/21 16:46 91 H 95 08/09/21 16:41 85 92 08/09/21 16:36 91 H 95 08/09/21 16:31 85 95 08/09/21 16:29 88 126/73 08/09/21 16:26 90 95 08/09/21 16:21 87 94 08/09/21 16:16 90 94 08/09/21 16:11 96 H 94 08/09/21 16:06 88 95 08/09/21 16:01 90 95 08/09/21 15:59 88 124/69 08/09/21 15:56 91 H 94 08/09/21 15:51 92 H 94 08/09/21 15:46 100 H 95 08/09/21 15:41 95 H 96 08/09/21 15:36 87 93 08/09/21 15:35 72 85 08/09/21 15:31 91 H 96 08/09/21 15:29 87 119/70 88 08/09/21 15:26 91 H 96 08/09/21 15:21 92 H 94 08/09/21 15:20 91 H 91 08/09/21 15:16 97 H 94 08/09/21 15:14 92 H 90 08/09/21 15:11 98 H 94 08/09/21 15:09 44 L 86 08/09/21 15:06 98 H 94 08/09/21 15:01 99 H 94 08/09/21 14:59 100 H 121/70 08/09/21 14:56 95 H 96 08/09/21 14:51 94 H 93 08/09/21 14:46 92 H 90 08/09/21 14:41 90 90 08/09/21 14:36 91 H 90 08/09/21 14:31 92 H 90 08/09/21 14:29 91 H 119/62 08/09/21 14:26 91 H 90 08/09/21 14:24 92 H 90 08/09/21 14:21 93 H 97 08/09/21 14:16 92 H 97 08/09/21 14:11 92 H 95 08/09/21 14:06 90 95 08/09/21 14:05 97.7 F 90 18 131/58 97 08/09/21 14:01 91 H 98 08/09/21 13:59 90 131/58 88 08/09/21 13:56 95 H 96 08/09/21 13:51 91 H 95 08/09/21 13:46 97 H 98 08/09/21 13:41 99 H 97 08/09/21 13:36 97 H 97 08/09/21 13:32 96 H 124/68 08/09/21 13:31 98 H 96 08/09/21 13:29 98 H 123/68 08/09/21 13:26 94 H 96 08/09/21 13:21 93 H 96 08/09/21 13:16 93 H 95 08/09/21 13:11 90 95 08/09/21 13:06 87 94 08/09/21 13:01 90 94 08/09/21 12:59 88 121/68 08/09/21 12:56 89 94 08/09/21 12:51 84 95 08/09/21 12:46 82 95 08/09/21 12:41 82 95 08/09/21 12:36 84 96 08/09/21 12:31 78 94 08/09/21 12:30 82 91 94 08/09/21 12:29 97.9 F 76 12 120/67 93 08/09/21 12:28 79 120/67 08/09/21 12:26 89 95 08/09/21 12:22 75 119/67 08/09/21 12:21 77 95 08/09/21 12:16 77 94 08/09/21 12:11 75 95 08/09/21 12:07 75 118/69 08/09/21 12:06 73 95 08/09/21 12:01 77 95 08/09/21 11:56 72 95 08/09/21 11:52 72 114/69 08/09/21 11:51 73 96 08/09/21 11:46 72 96 08/09/21 11:41 72 96 08/09/21 11:37 70 112/65 08/09/21 11:36 69 95 08/09/21 11:31 71 95 08/09/21 11:30 97.7 F 69 14 108/60 95 08/09/21 11:26 69 95 08/09/21 11:22 74 108/60 08/09/21 11:21 71 92 08/09/21 11:16 71 92 08/09/21 11:15 97.7 F 71 14 112/64 94 08/09/21 11:11 70 94 08/09/21 11:07 68 112/64 08/09/21 11:06 70 94 08/09/21 11:01 70 95 08/09/21 11:00 97.7 F 70 14 109/57 94 08/09/21 10:59 70 94 08/09/21 10:56 71 96 08/09/21 10:52 75 109/57 08/09/21 10:51 72 97 08/09/21 10:47 75 106/59 08/09/21 10:46 75 97 08/09/21 10:45 97.7 F 75 14 98/54 97 08/09/21 10:42 76 98/54 08/09/21 10:41 73 98 08/09/21 10:37 75 99/57 08/09/21 10:36 77 98 08/09/21 10:32 74 98/52 08/09/21 10:31 72 98 08/09/21 10:30 97.7 F 72 14 94/51 98 08/09/21 10:27 75 94/51 08/09/21 10:26 77 97 08/09/21 10:21 78 96 08/09/21 10:19 76 84/45 08/09/21 10:18 75 89/54 08/09/21 10:16 97.6 F 79 12 90/54 94 08/09/21 08:55 92 H 96 08/09/21 08:50 91 H 97 08/09/21 08:48 93 H 137/82 08/09/21 08:45 94 H 97 08/09/21 08:40 91 H 96 08/09/21 08:35 91 H 97 08/09/21 08:30 98 H 97 08/09/21 08:25 91 H 95 08/09/21 08:20 101 H 95 08/09/21 08:18 87 132/79 08/09/21 08:15 91 H 96 08/09/21 08:10 93 H 95 08/09/21 08:05 84 95 08/09/21 08:00 85 95 08/09/21 07:55 97 H 96 08/09/21 07:50 88 95 08/09/21 07:48 85 132/77 08/09/21 07:45 88 95 08/09/21 07:40 88 96 08/09/21 07:35 85 95 08/09/21 07:30 85 95 08/09/21 07:25 86 96 08/09/21 07:22 97.7 F 89 14 125/77 97 08/09/21 07:20 85 95 08/09/21 07:18 83 125/77 08/09/21 07:17 96 08/09/21 07:15 84 97 08/09/21 07:10 86 97 08/09/21 07:05 83 96 08/09/21 07:00 80 96 08/09/21 06:55 79 96 Intake and Output 08/09/21 08/09/21 08/10/21 15:59 23:59 07:59 Intake Total 1197.917 Output Total 900 1300 1400 Balance 1118.567 -102.083 -1400 Intake: IV 1196.917 Lactated Ringers 1,000 ml 731.25 @ 75 mls/hr IV DIRECT DARLENE Rx#:[id number] MAGNESIUM SULFATE 40GM/ 466.667 1000ML 40 gm In 1,000 ml @ 2 GM/HR 50 mls/hr IV DIRECT DARLENE Rx#:[id number] PITOCin/NS 30 UNIT/500ML 18.567 30 units In 500 ml @ 2 mls/hr IV TITR DARLENE Rx#: [id number] Output: Urine 900 1300 1400 Indwelling Catheter 600 1100 900 Uretheral ([place]) 200 500 Other: Total, Output Amount 150 200 400 Estimated Blood Loss 1,663 - Labs Labs: Abnormal lab results 08/08/21 08/09/21 08/09/21 Range/Units 17:30 08:30 09:31 Hgb (10.1-14.3) gm/dl Hct (30.3-42.9) % ABG pH 7.250 L (7.320-7.450) POC ABG pO2 17.3 L (83-108) mmHg ABG Oxyhemoglobin 29.2 L (94-98) ABG Sodium 127.2 L (136.0-145.0) mmol/L ABG Chloride 96.0 L (98-107) mmol/L Magnesium (1.7-2.3) mg/dL Coronavirus (PCR) Positive A (Negative) Crossmatch See Detail 08/09/21 08/09/21 08/09/21 Range/Units 10:30 15:18 22:54 Hgb 9.4 L (10.1-14.3) gm/dl Hct 27.9 L (30.3-42.9) % ABG pH (7.320-7.450) POC ABG pO2 (83-108) mmHg ABG Oxyhemoglobin (94-98) ABG Sodium (136.0-145.0) mmol/L ABG Chloride (98-107) mmol/L Magnesium 4.80 H 6.20 H (1.7-2.3) mg/dL Coronavirus (PCR) (Negative) Crossmatch 08/09/21 Range/Units Unknown Hgb (10.1-14.3) gm/dl Hct (30.3-42.9) % ABG pH (7.320-7.450) POC ABG pO2 (83-108) mmHg ABG Oxyhemoglobin (94-98) ABG Sodium (136.0-145.0) mmol/L ABG Chloride (98-107) mmol/L Magnesium 5.90 H (1.7-2.3) mg/dL Coronavirus (PCR) (Negative) Crossmatch
[2021-08-10] MEDS: IBUPROFEN 800 MG TAB PO PRN ×2 (09:00→22:45)
--- NOTE | 2021-08-10 10:31 | XRay Report ---
CHEST 1 VIEW 08/10/2021 9:04 AM INDICATION / CLINICAL INFORMATION: cough, positive coronavirus. COMPARISON: None available. FINDINGS: SUPPORT DEVICES: None. HEART / MEDIASTINUM: No significant abnormality. LUNGS / PLEURA: No significant pulmonary or pleural abnormality. No pneumothorax. ADDITIONAL FINDINGS: No significant additional findings. IMPRESSION: 1. No acute findings. Signer Name: Avel Jose MD Signed: 08/10/2021 10:27 AM Workstation Name: [id number]
[2021-08-10] MEDS: oxyCODONE /ACETAMINOPHEN 5-325MG TAB PO PRN ×2 (12:30→20:25)
--- NOTE | 2021-08-10 13:24 | Post Anesthesia Evaluation ---
- Post Anesthesia Evaluation Patient Participated: Yes Airway Patent: Yes Stable Respiratory Function: Yes Nausea/Vomiting: No Temp > 96.8F: Yes Pain Manageable: Yes Adequeate Hydration: Yes Anesthesia Complications: No Block Receding Appropriately: Yes Patient on Ventilator: No
[2021-08-10] MEDS: FERROUS SULFATE 325 MG TAB PO SCH (22:30)
[2021-08-11] MEDS: HYDROcodone/ACETAMINOPHEN 5-325 MG TAB PO PRN ×2 (02:25→09:23)
[2021-08-11] MEDS ORDERED: TETANUS,DIPH,PERTUSS(ACELL) VACCINE 0.5 ML SYRINGE IM ONE (06:00)
[2021-08-11] MEDS: IBUPROFEN 800 MG TAB PO PRN (07:35)
[2021-08-11] MEDS: FERROUS SULFATE 325 MG TAB PO SCH (09:23)
[2021-08-11 11:39] VITALS: BP 129/81
--- NOTE | 2021-08-11 12:15 | Progress Note ---
Assessment and Plan A: S/P Repeat LTCS with BTL () Maternal hemorrhage with suspected vasa previa Hematoma (R) mesosalpix PPH with asymptomatic anemia Covid POS Preeclampsia with stable b/p P: Continue routine pp orders Continue Fe and labetalol D/C home per pt's request Subjective - Subjective Date of service: 08/11/21 Principal diagnosis: s/p primary LTCS with btl Patient reports: appetite normal, voiding normally, pain well controlled, ambulating normally : doing well Objective - Vital Signs Latest vital signs: Vital Signs Temp Pulse Resp BP Pulse Ox Pulse Ox 08/11/21 11:38 97.9 F 79 18 129/81 97 08/11/21 09:41 96 08/11/21 08:10 97.8 F 74 18 136/77 96 08/11/21 08:00 96 08/11/21 04:35 98.7 F 79 16 123/71 97 08/10/21 22:25 97.9 F 75 16 140/83 100 08/10/21 20:25 97 08/10/21 17:51 97.9 F 76 20 145/84 08/10/21 16:19 97 08/10/21 14:50 98.1 F 76 20 110/71 08/10/21 14:00 97 08/10/21 12:23 97 Intake and Output 08/10/21 08/11/21 08/11/21 22:59 06:59 14:59 Other: # Voids Void 1 1 - Exam Breasts: Present: normal Abdomen: Present: normal appearance, soft, normal bowel sounds Vulva: both: normal Uterus: Present: normal, firm, fundal height below umbilicus Extremities: Present: normal Incision: Present: normal, dry, intact
--- NOTE | 2021-08-11 12:30 | Discharge Summary ---
Providers - Providers Date of Admission: 08/08/21 07:11 Date of discharge: 08/11/21 Attending physician: JAIR PEDRO MD Primary care physician: JAIR PEDRO MD Hospitalization Reason for admission: active labor, IUP - Delivery: Procedure: primary low transverse Episiotomy: none Laceration: none Incision: normal, dry, intact Other procedures: none complications: other (pos covid isolation, anemia requiring po Fe,) Discharge diagnosis: delivery [place] baby: female Hospital course: Pt presented to [facility] in active labor. She had an emergency primary LTCS r/t bloody gush after AROM for suspected vasa previa. A hematoma (r) mesosalpix was noted. Pt suffered from a PPH and received Fe po pp. She also tested pos for covid, but had no symptoms. See H&p, delivery summary, and pp notes. Condition at discharge: Stable Disposition: 01 HOME / SELF CARE / HOMELESS Plan - Discharge Medications Prescriptions: Ferrous Sulfate [Feosol 325 MG tab] 325 mg PO QDAY #120 tablet labetaloL [Labetalol 100mg TAB] 100 mg PO BID #120 tablet Ibuprofen [Motrin 800 MG tab] 800 mg PO Q6H PRN #30 tablet PRN Reason: Pain, Moderate (4-6) - Provider Discharge Summary Activity: routine, no sex for 6 weeks, no heavy lifting 4 weeks, no strenuous exercise Diet: other (high Fe) Instructions: routine Additional instructions: [] Smoking cessation referral if applicable(refer to patient education folder for contact #) [] Refer to [facility]'s [facility] Booklet Call your doctor immediately for: * Fever > 100.5 * Heavy vaginal bleeding ( >1 pad per hour) * Severe persistent headache * Shortness of breath * Reddened, hot, painful area to leg or breast * Drainage or odor from incision. * Keep incision clean and dry at all times and follow doctor's instructions regarding bathing/showering - Follow up plan Follow up: JAIR PEDRO MD [Primary Care Provider] - 14 Days Forms: [facility] Discharge Summary
== END 2021-08-11 13:20 | disposition home or self-care (01) | DRG 783 ==
LOC: TRG 07:10 → APU 07:11 → LD 07:11 → TRG 12:05 → OB 08-10 09:50
PROVIDERS: ADMIT Obstetrics & Gynecology; ATTEND Obstetrics & Gynecology
PROC: 10D00Z1 Extraction of Products of Conception, Low, Open Approach (ICD-10-PCS; principal; 2021-08-09)
PROC: 0UB70ZZ Excision of Bilateral Fallopian Tubes, Open Approach (ICD-10-PCS; 2021-08-09)
PROC: 10907ZC Drainage of Amniotic Fluid, Therapeutic from Products of Conception, Via Natural or Artificial Opening (ICD-10-PCS; 2021-08-09)
PROC: 4A033R1 Measurement of Arterial Saturation, Peripheral, Percutaneous Approach (ICD-10-PCS; 2021-08-09)
PROC: 3E0234Z Introduction of Serum, Toxoid and Vaccine into Muscle, Percutaneous Approach (ICD-10-PCS; 2021-08-11)
DX: O14.14 Severe pre-eclampsia complicating childbirth (principal); U07.1 COVID-19; O98.53 Other viral diseases complicating the puerperium; Z3A.35 35 weeks gestation of pregnancy; Z37.0 Single live birth; O09.523 Supervision of elderly multigravida, third trimester; O90.2 Hematoma of obstetric wound; O99.62 Diseases of the digestive system complicating childbirth; K21.9 Gastro-esophageal reflux disease without esophagitis; O60.14X0 Preterm labor third trimester with preterm delivery third trimester, not applicable or unspecified; O69.4XX0 Labor and delivery complicated by vasa previa, not applicable or unspecified; O90.81 Anemia of the puerperium; D64.9 Anemia, unspecified; Z23 Encounter for immunization; Z30.2 Encounter for sterilization
CPT/HCPCS: 36415; 71045; 74018; 76815; 81001; 82565; 82805; 82962; 83036; 83615; 83735; 84450; 84460; 84550; 85014; 85018; 85027; 86592; 86706; 86762; 86803; 86850; 86900; 86901; 86920; 87086; 87806; 88302; 88307; 90471; 90715; G0378; J0290; J0330; J0690; J0702; J1100; J1885; J2060; J2300; J2405; J2590; J2704; J3010; J3475; J3490; J7120; U0003